=== PATIENT | female | born 1965 | race African-American/Black ===

== ENCOUNTER 2024-09-04 20:25 | Emergency (ER) | payer OTHER ==
[2024-09-04 20:42] VITALS: BP 118/76; PULSE 72; RESP 16; TEMP 97.9; BMI 36.6
== END 2024-09-05 04:02 ==
LOC: JER 20:25
DX: J45.909 Unspecified asthma, uncomplicated (principal); F41.9 Anxiety disorder, unspecified; W06.XXXA Fall from bed, initial encounter
CPT/HCPCS: 99283-25

== ENCOUNTER 2025-08-25 12:56 | Emergency (ER) | payer OTHER ==
[2025-08-25 13:10] VITALS: TEMP 98; BMI 32.9
[2025-08-25 14:09] LABS: ABSOLUTE IMMATURE GRANULOCYTES 0.01 x10^3/uL (0.0-0.031); BASOPHILS # 0.02 x10^3/uL (0.01-0.08); EOSINOPHIL % 0.9 % (0.7-5.8); EOSINOPHILS # 0.04 x10^3/uL (0.04-0.36); MCHC 31.7 g/dl (32.2-35.5); MEAN CELL VOLUME 87.3 fl (79.4-94.8); MEAN PLT VOLUME 9.9 fl (9.4-12.3); MONOCYTE # 0.51 x10^3/uL (0.24-0.86); MONOCYTE % 11.0 % (4.7-12.5); RDW 13.5 % (12.4-16.4)
[2025-08-25] MEDS ORDERED: HALOPERIDOL LACTATE 5 MG/ML ONE (14:35)
[2025-08-25 14:40] LABS: GLUCOSE,RANDOM 79.0 mg/dL (74-106); TOT PROT 8.1 g/dl (6.4-8.2)
[2025-08-25 14:41] LABS: CO2 26.0 mmol/L (21-32)
[2025-08-25 14:43] LABS: ALK PHOS 91.0 U/L (40-150)
[2025-08-25] MEDS: HALOPERIDOL LACTATE 5 MG/ML IM ONE (14:44)
[2025-08-25 14:45] LABS: SGOT/AST 36.0 U/L (5-34); SGPT/ALT 15.0 U/L (0-55)
[2025-08-25 14:46] LABS: CREATININE 0.61 mg/dL (0.55-1.3)
[2025-08-25 16:08] LABS: URINE APPEARANCE CLEAR; URINE BILIRUBIN NEGATIVE (NEGATIVE); URINE COLOR YELLOW; URINE GLUCOSE (UA) NEGATIVE (NEGATIVE); URINE KETONE 2+ (NEGATIVE); URINE LEUK ESTERASE NEGATIVE (NEGATIVE); URINE NITRITE NEGATIVE (NEGATIVE); URINE PROTEIN TRACE (NEGATIVE); URINE UROBILINOGEN 2.0 mg/dL (0.2-1.0)
[2025-08-25 22:11] VITALS: RESP 17
[2025-08-25 22:12] VITALS: BP 123/79; PULSE 81
== END 2025-08-25 22:15 | disposition home or self-care (01) ==
LOC: JER 12:56
PROC: 3E033GC Introduction of Other Therapeutic Substance into Peripheral Vein, Percutaneous Approach (ICD-10-PCS; principal; 2025-08-25)
PROC: 3E023GC Introduction of Other Therapeutic Substance into Muscle, Percutaneous Approach (ICD-10-PCS; 2025-08-25)
DX: F03.911 Unspecified dementia, unspecified severity, with agitation (principal); R41.82 Altered mental status, unspecified
CPT/HCPCS: 36415; 71045-TC-FY; 80053; 81003; 83735; 84100; 84484; 85025; 87086; 87637-QW; 93005; 93010; 96372; 96374; 99285-25

== ENCOUNTER 2025-08-29 23:52 | Emergency (ER) | payer OTHER ==
[2025-08-30 00:13] VITALS: TEMP 97.7; BMI 32.9
[2025-08-30 02:14] LABS: URINE APPEARANCE CLEAR; URINE BILIRUBIN NEGATIVE (NEGATIVE); URINE COLOR DK YELLOW; URINE GLUCOSE (UA) NEGATIVE (NEGATIVE)
[2025-08-30 02:15] LABS: URINE KETONE 15 mg/dl (NEGATIVE); URINE LEUK ESTERASE MODERATE (NEGATIVE); URINE NITRITE NEGATIVE (NEGATIVE); URINE PROTEIN 30 (NEGATIVE); URINE UROBILINOGEN 1.0 mg/dL (0.2-1.0)
[2025-08-30 05:26] VITALS: BP 111/70; PULSE 74; RESP 16
== END 2025-08-30 05:30 ==
LOC: JER 23:52
DX: Z00.00 Encounter for general adult medical examination without abnormal findings (principal)
CPT/HCPCS: 36415; 70450-TC; 81003; 87086; 93005; 93010; 99285-25